=== PATIENT | female | born 1990 | race American Indian/Alaskan Native ===

== ENCOUNTER 2017-02-27 20:36 | Emergency (ER) | payer MEDICAID ==
--- NOTE | 2017-02-27 22:23 | Emergency Department Report ---
ED General Adult HPI - General Chief complaint: Upper Respiratory Infection Stated complaint: FLU SX Time Seen by Provider: 02/27/17 22:03 Source: patient Mode of arrival: Ambulatory Limitations: No Limitations - History of Present Illness Initial comments: pt is a 27 y/o aaf who presents for uri symptoms with bilat ear and throat pain with noc fever x 1 week pt denies sob no wheezing no dizziness no n/v , there are no exacerbating or relieving factors per patient Onset/Timin -: week(s) Location: head Radiation: non-radiation Severity scale (0 -10): 4 Quality: aching Consistency: constant Improves with: none Worsens with: none Associated Symptoms: cough, fever/chills, malaise. denies: confusion, chest pain, diaphoresis, headaches, loss of appetite, nausea/vomiting, rash, seizure, shortness of breath, syncope, weakness - Related Data Previous Rx's Medication Instructions Recorded Last Taken Type Amoxicillin 500 mg PO TID #30 capsule 02/27/17 Unknown Rx Dextromethorphan/Benzocaine 1 each PO QID #24 lozenge 02/27/17 Unknown Rx [Cepacol Sorethroat-Cough Roshan] Ibuprofen 800 mg PO TID PRN #30 tablet 02/27/17 Unknown Rx Allergies Allergy/AdvReac Type Severity Reaction Status Date / Time No Known Allergies Allergy Unverified 02/27/17 21:02 ED Review of Systems ROS: Stated complaint: FLU SX Other details as noted in HPI Constitutional: denies: chills, fever Eyes: denies: eye pain, eye discharge, vision change ENT: ear pain, throat pain, congestion. denies: dental pain, hearing loss, epistaxis Respiratory: cough. denies: shortness of breath, wheezing Cardiovascular: denies: chest pain, palpitations Endocrine: no symptoms reported Gastrointestinal: denies: abdominal pain, nausea, diarrhea Genitourinary: denies: urgency, dysuria, discharge Musculoskeletal: denies: back pain, joint swelling, arthralgia Skin: denies: rash, lesions Neurological: denies: headache, weakness, paresthesias Psychiatric: denies: anxiety, depression Hematological/Lymphatic: as per HPI ED Past Medical Hx - Past Medical History Previous Medical History?: No - Surgical History Additional Surgical History: tubal ligation - Social History Smoking Status: Never Smoker Substance Use Type: None - Medications Home Medications: Home Medications Medication Instructions Recorded Confirmed Last Taken Type Amoxicillin 500 mg PO TID #30 capsule 02/27/17 Unknown Rx Dextromethorphan/Benzocaine 1 each PO QID #24 lozenge 02/27/17 Unknown Rx [Cepacol Sorethroat-Cough Roshan] Ibuprofen 800 mg PO TID PRN #30 tablet 02/27/17 Unknown Rx ED Physical Exam - General Limitations: No Limitations General appearance: alert, in no apparent distress - Head Head exam: Present: atraumatic, normocephalic - Eye Eye exam: Present: normal appearance, PERRL, EOMI Pupils: Present: normal accommodation - ENT ENT exam: Present: mucous membranes moist, TM's normal bilaterally, normal external ear exam - Expanded ENT Exam Expanded Mouth exam: Present: normal external inspection, tongue normal. Absent: trismus , tongue elevation Throat exam: Positive: tonsillar erythema, tonsillomegaly, other (moderate pharynx erythema red lesion no exusdate halatosis no stidor uvula midline no stridor ). Negative: tonsillar exudate, R peritonsillar mass, L peritonsillar mass - Neck Neck exam: Present: normal inspection, full ROM. Absent: tenderness, lymphadenopathy, thyromegaly - Respiratory Respiratory exam: Present: normal lung sounds bilaterally. Absent: respiratory distress, wheezes, rales, rhonchi, stridor, chest wall tenderness - Cardiovascular Cardiovascular Exam: Present: regular rate, normal rhythm, normal heart sounds. Absent: systolic murmur, diastolic murmur, rubs, gallop - GI/Abdominal GI/Abdominal exam: Present: soft, normal bowel sounds. Absent: distended, tenderness, guarding, rebound, mass, bruit, pulsatile mass, hernia - Rectal Rectal exam: Present: deferred - Extremities Exam Extremities exam: Present: normal inspection - Back Exam Back exam: Present: normal inspection - Neurological Exam Neurological exam: Present: alert, oriented X3 - Psychiatric Psychiatric exam: Present: normal affect, normal mood - Skin Skin exam: Present: warm, dry, intact, normal color. Absent: rash ED Course Vital Signs 02/27/17 21:00 Temperature 98.5 F Pulse Rate 86 Respiratory 18 Rate Blood Pressure 127/65 O2 Sat by Pulse 100 Oximetry ED Medical Decision Making - Medical Decision Making pt is a27 y/o aaf with nmh who presents for head congestion throat and ear pain x 1 week with noc fever tmax 101.4 oral at home, exam: pt appears nontoxic well hydrate well nourished with nad ENT: no tm erythema no pain , nose: bilat turbinate erythema boggy no obstruction no polyps, pharynx: moderate eythema no exudate tonsilor erythema edema lesions evula midline no stridor lungs clear bilat no wheezing, pt is tolerating po intake no n/v plan: tx for pharyngitis , amoxicillin , ibuprofen, cepacol lozenges, pt will follow up with primary care in 2 days pt instructed to return to emergency is symptoms worsen. pt verbalized agreement and understanding of discharge plan. Critical care attestation.: If time is entered above; I have spent that time in minutes in the direct care of this critically ill patient, excluding procedure time. ED Disposition Clinical Impression: URI (upper respiratory infection) Qualifiers: URI type: acute nasopharyngitis (common cold) Qualified Code(s): J00 - Acute nasopharyngitis [common cold] Pharyngitis Qualifiers: Pharyngitis/tonsillitis etiology: unspecified etiology Qualified Code(s): J02.9 - Acute pharyngitis, unspecified Disposition: TO HOME OR SELFCARE Is pt being admited?: No Does the pt Need Aspirin: No Condition: Good Instructions: Pharyngitis (ED), Upper Respiratory Infection (ED) Additional Instructions: pt will follow up with primary care in 2 days pt instructed to return to emergency is symptoms worsen. Prescriptions: Amoxicillin 500 mg PO TID #30 capsule Dextromethorphan/Benzocaine [Cepacol Sorethroat-Cough Roshan] 1 each PO QID #24 lozenge Ibuprofen 800 mg PO TID PRN #30 tablet PRN Reason: Pain Referrals: PRIMARY CARE, [Primary Care Provider] - 3-5 Days Forms: Work/School Release Form(ED) Time of Disposition: 22:48
[2017-02-28 02:16] VITALS: BP 128/66
== END 2017-02-27 23:09 | disposition home or self-care (01) ==
LOC: ED 20:36
DX: J00 Acute nasopharyngitis [common cold] (principal); J02.9 Acute pharyngitis, unspecified
CPT/HCPCS: 99282